=== PATIENT | male | born 1950 | race Caucasian/White ===

== ENCOUNTER → 2017-02-03 | Outpatient (CLI) | payer MEDICARE ==
[2017-02-03 17:21] LABS: Appearance,Urine Clear (Clear); Bilirubin,Urine Negative (Negative); Glucose,Urine (UA) Negative (Negative); Ketones,Urine Negative (Negative); Leukocyte Esterase,Urine Negative (Negative); Nitrite,Urine Negative (Negative); Protein,Urine Negative (Negative); Specific Gravity,Urine 1.015 (1.001-1.035); UA Billing (MACRO vs. MICRO) CHEM; Urobilinogen,Urine <2.0 mg/dL (<2.0)
[2017-02-03 17:23] LABS: Basophils % (A) 0 %; CH 30.1; CHCM 33.5; Eosinophils % (A) 1 %; HDW 2.62; HGB 15.1 gm/dL (13.0-17.5); Luc # (Auto) 0.11; Luc % (Auto) 2; Lymphocytes # (A) 0.6 k/uL (1.0-4.8); Lymphocytes % (A) 11 %; MCH 30.3 pg (25.0-35.0); MCHC 33.5 g/dL (31.0-37.0); MCV 90.5 fL (80.0-100.0); Mean Platelet Volume 6.3; Monocytes # (A) 0.4 k/uL (0-1.0); Monocytes % (A) 7 %; Neutrophils # (A) 4.4 k/uL (1.3-7.7); Neutrophils % (A) 79 %; RBC 4.97 m/uL (4.30-5.90); RDW 13.8 % (11.5-15.5); WBC 5.6 k/uL (3.8-10.6); WBC (Perox) 5.68
[2017-02-03 17:34] LABS: INR 1.1 (<1.1); Partial Thromboplastin Time 25.4 sec (22.0-30.0); Prothrombin Time 10.9 sec (9.0-12.0)
[2017-02-03 17:39] LABS: ALT 38 U/L (21-72); AST 26 U/L (17-59); Alkaline Phosphatase 69 U/L (38-126); Anion Gap 8 mmol/L; Blood Urea Nitrogen 30 mg/dL (9-20); Calcium 10.2 mg/dL (8.4-10.2); Carbon Dioxide 25 mmol/L (22-30); Chloride 106 mmol/L (98-107); Glucose 98 mg/dL (74-99); Non-African American GFR(MDRD) 55 (>60 ml/min/1.73 sqM); Potassium 5.3 mmol/L (3.5-5.1); Sodium 139 mmol/L (137-145); Total Bilirubin 0.7 mg/dL (0.2-1.3); Total Protein 6.6 g/dL (6.3-8.2)
== END ==
LOC: LABPAT 16:42
PROVIDERS: ATTEND Orthopaedic Surgery
DX: Z01.810 Encounter for preprocedural cardiovascular examination (principal); Z01.812 Encounter for preprocedural laboratory examination
CPT/HCPCS: 80053; 81003; 85025; 85610; 85730; 86850; 86900; 86901; 87070

== ENCOUNTER 2017-02-10 07:10 | Inpatient (IN) | payer BC, MEDICARE ==
[~2017-02-10 07:10] MED LIST: ACETAMINOPHEN TAB 500 MG TAB PO ONE; DEXAMETHASONE SOD PHOSPHATE 10 MG/ML 1 ML VIAL IV ONE; HYDROmorphone 1 MG/ML 1 ML SYRINGE IVP PRN; LACTATED RINGERS 1,000 ML IV SCH; LIDOCAINE 1% 20 ML VIAL (10MG/ML) FOR IV START INTRADERMA PRN; MELOXICAM 7.5 MG TAB PO ONE; MIDAZOLAM 2 MG/2 ML VIAL IV PRN; ONDANSETRON 4 MG/2 ML VIAL IVP ONE; SCOPOLAMINE 1.5MG/72HR PATCH TRANSDERM ONE; TRANEXAMIC ACID 1,000 MG in SODIUM CHLORIDE 0.9% 100 ML IVPB ONE; ceFAZolin 2 GM in SODIUM CHLORIDE 0.9% 100 ML IVPB ONE
[2017-02-10 09:32] LABS: Glucose,Whole Blood 82 mg/dL (75-99)
[2017-02-10] MEDS ORDERED: HYDROCORTISONE SUCCINATE 100 MG/2 ML VIAL IVP ONE (09:54)
[2017-02-10] MEDS ORDERED: TRANEXAMIC ACID 1,000 MG/10 ML VIAL ONE (10:56)
[2017-02-10] MEDS ORDERED: MIDAZOLAM 2 MG/2 ML VIAL ONE (10:56)
[2017-02-10] MEDS ORDERED: SODIUM CHLORIDE 0.9% IRRIG 1,000 ML BTL IRRIGATION ONE (10:56)
[2017-02-10] MEDS ORDERED: fentaNYL (PF) 50 MCG/ML 2 ML AMP ONE (10:56)
[2017-02-10] MEDS ORDERED: HEPARIN SODIUM,PORCINE 10,000 UNIT/ML 1 ML VIAL ONE (10:56)
[2017-02-10] MEDS ORDERED: SODIUM CHLORIDE 0.9% 100 ML BAG ONE (10:56)
[2017-02-10] MEDS ORDERED: ceFAZolin 3,000 MG in SODIUM CHLORIDE 0.9% IRRIGATIO 3,000 ML IRRIGATION ONE (11:10)
[2017-02-10] MEDS: ROPIVACAINE 246.25 MG, EPINEPHrine 0.5 MG, KETOROLAC 30 MG, cloNIDine HCL/PF 80 MCG, WA... MISCELLANE ONE ×10 (11:40→12:34)
[2017-02-10] MEDS ORDERED: LACTATED RINGERS 1,000 ML IV ONE (12:00)
[2017-02-10] MEDS ORDERED: MAGNESIUM HYDROXIDE 2,400 MG/10 ML CUP PO PRN (13:05)
[2017-02-10] MEDS ORDERED: ONDANSETRON 4 MG/2 ML VIAL IVP PRN (13:05)
[2017-02-10] MEDS ORDERED: DIAZEPAM 5 MG TAB PO PRN ×2 (13:05)
[2017-02-10] MEDS ORDERED: HYDROmorphone 1 MG/ML 1 ML SYRINGE IVP PRN ×3 (13:05)
[2017-02-10] MEDS ORDERED: NALOXONE 0.4 MG/ML 1 ML VIAL IV PRN (13:05)
[2017-02-10] MEDS ORDERED: HYDROcodone/APAP 5-325MG 1 EACH TAB PO PRN (13:05)
[2017-02-10] MEDS ORDERED: hydrOXYzine PAMOATE 25 MG CAP PO PRN (13:05)
--- NOTE | 2017-02-10 13:18 | P.OP ---
Date of Procedure: 02/10/17 Preoperative Diagnosis: Severe osteoarthritis right hip Postoperative Diagnosis: Severe osteoarthritis right hip Procedure(s) Performed: Right total hip arthroplasty with a direct anterior approach Implants: Black and nephew Polarstem size 6 standard with a collar Black [employer] Nephew R3, 3 hole acetabular shell, 48 mm [employer]hew reflection 6.5 mm cancellus screw, 20 mm 2 [employer]hew R3, XLPE 20 acetabular liner Black [employer] Nephew Oxinium femoral head 32 m, +4 All components were press-fit. The articulation is ceramic on polyethylene. Anesthesia: spinal Surgeon: Rodrigue Quarles Back Tender Cylinder #1: Alysia Fuller Back Tender Cylinder #2: Mohini Horowitz Estimated Blood Loss (ml): 250 (128 returned with cell saver) Pathology: other (Femoral head) Condition: stable Disposition: PACU Indications for Procedure: After failure of conservative treatment we discussed the surgical and nonsurgical treatment options at length. Patient wishes to proceed with a total hip arthroplasty with a direct anterior approach. Complications specific to this procedure were discussed at length, including but not limited to infection, leg length discrepancy, dislocation, and nerve injury. Patient is aware of all these complications and informed consent was obtained Operative Findings: The operative findings are consistent with severe osteoarthritis of the right hip Description of Procedure: Patient was seen and evaluated in the preoperative area, consent was reviewed, and the surgical site was marked with a skin marker. Patient was then brought to the operating room and given prophylactic antibiotics intravenously. 1 g of Tranexamic acid was also given. A spinal anesthetic was administered by the anesthesia department. The patient was then placed on the [place] table with the bony prominences well-padded. The hip area was then prepped and draped in usual sterile fashion. A universal timeout was then performed, which confirmed the patient's name, surgical site, ALLERGIES, and procedure being performed. Next the incision site was located at 1 cm distal and 1 cm lateral to the anterior superior iliac spine. The skin and subcutaneous tissues were sharply incised. Incision was carefully dissected down to the fascia overlying the tensor fascia anjel muscle. This fascia was then incised in line with the incision. Next, using blunt finger dissection, the tensor fascia anjel muscle was dissected off its investing fascia. The muscle was then carefully retracted laterally with a cobra retractor over the lateral neck of the femur. Next, the circumflex vessels were identified and cauterized using the AquaMantis device. The anterior hip capsule was then exposed. The capsule was then opened and an inverted T fashion. Retention sutures were placed in the inferior arms of the capsule. Cobra retractors were then placed intracapsularly. The proximal femur was then visualized. The femoral neck was then osteotomized appropriate level above the lesser trochanter. Small amount of traction was placed with the [place] table. A small wedge of bone was then removed from the remaining femoral head. Next, using a corkscrew femoral head was easily removed from the acetabulum. On gross visual inspection, the femoral head had complete loss of articular cartilage in multiple periarticular osteophytes. Attention was then turned to the acetabulum. the acetabulum was exposed and any remaining labrum was excised. Sequential reaming of the acetabulum was performed using fluoroscopic guidance. When the appropriate size was reached, a trial was then placed. The position and fit of the trial was checked with fluoroscopy. The trial was then removed. Then, using fluoroscopic guidance, the final implant was impacted at 20 of anteversion and 40 of abduction, and fully seated in the acetabulum. 2 screws were then placed in the acetabulum. Again fluoroscopy was used to check position of the screws. Next, the liner was then impacted, with a 20 elevated liner located in the anterior superior quadrant. Component locking was confirmed. Attention was then directed to the femur. With the aid of the [place] table, the femur was externally rotated to approximately 130, extended, and abducted under the opposite leg. A side hook was then placed under the proximal femur, and the side hook elevator was used to elevate the proximal femur. Retractors were then placed. A capsular release was performed, as well as a release of the conjoined tendon, which afforded excellent visualization of the proximal femur. Next, a box osteotome was used to lateralize the proximal femur. A hand paint mixer was then used to locate the femoral canal. Sequential broaching was then performed with appropriate size which afforded excellent fixation in the proximal femur. A trial was then placed with appropriate head and neck, and the hip was gently reduced with the aid of the [place] table. Fluoroscopy was then used to check position of the components, as well as to ensure equal leg lengths. The hip was then gently dislocated and the trials were then removed. Final implants were then impacted and the hip was again reduced. Final fluoroscopic x-rays confirmed that the components were in anatomic position, as well as equal leg lengths. The hip was also taken through range of motion, and found to be stable. The hip was then copiously irrigated with antibiotic solution with pulsatile lavage. The hip was then irrigated with Irrisept solution. The soft tissues were then injected with a ropivacaine solution, which consisted of 246.25 mg of ropivacaine, 0.5 mg of epinephrine, 30 mg of Toradol, 80 g of clonidine, and 48.45 mL of sterile water, for a total of 100 mL of fluid injected. A second dose of 1 g of Tranexamic acid was also given. the fascia was then closed with 2-0 strata fix suture. The subcutaneous tissue was closed with 3-0 Vicryl. The subcuticular tissue was closed with 3-0 strata fix suture. The skin was then closed with Dermabond tape. The patient was then transferred to the recovery room in stable condition. The warehouse administrative assistant DUNCAN Richard was required due to the complexity of surgery , and the need for skilled surgical services manager for positioning, draping, exposure , retraction, and closure of the wound.
[2017-02-10 13:29] VITALS: RESP 16
--- NOTE | 2017-02-10 13:35 | XR ---
Limited right hip HISTORY: Status post right hip arthroplasty Single frontal view of the right hip No comparisons Patient is status post right hip arthroplasty. There is anatomic alignment. Lucency noted in the soft tissues. IMPRESSION: Orthopedic follow-up
--- NOTE | 2017-02-10 14:17 | XR ---
Limited right hip HISTORY: Status post hip arthroplasty 2 intraoperative C-arm images document the procedure
--- NOTE | 2017-02-10 14:18 | FL ---
Fluoroscopy HISTORY: Pain 88 seconds fluoroscopy time supplied to the referring clinician. 3 intraoperative C-arm images docum ent the procedure. See dictated report from orthopedic surgery.
[2017-02-10] MEDS: SODIUM CHLORIDE 0.9% 1,000 ML IV SCH (14:48)
[2017-02-10] MEDS: ceFAZolin 2 GM in SODIUM CHLORIDE 0.9% 100 ML IVPB SCH (20:12)
[2017-02-10] MEDS ORDERED: TACROLIMUS 1 MG CAP PO SCH (21:00)
[2017-02-10] MEDS ORDERED: ATORVASTATIN 20 MG TAB PO SCH (21:00)
[2017-02-10] MEDS ORDERED: SENNOSIDES-DOCUSATE SODIUM 1 EACH TAB PO SCH (21:00)
[2017-02-10 21:07] VITALS: BMI 26.1
[2017-02-10] MEDS: LABETALOL 100 MG TAB PO SCH (21:09)
[2017-02-10] MEDS: MAGNESIUM OXIDE 400 MG TAB PO SCH (21:09)
[2017-02-10] MEDS: MYCOPHENOLATE MOFETIL 500 MG TAB PO SCH (21:09)
[2017-02-10] MEDS: ASPIRIN 325 MG TAB PO SCH (21:10)
[2017-02-10] MEDS: HYDROcodone/APAP 5-325MG 1 EACH TAB PO PRN (21:27)
[2017-02-11 01:46] VITALS: TEMP 97.7
[2017-02-11] MEDS: ceFAZolin 2 GM in SODIUM CHLORIDE 0.9% 100 ML IVPB SCH (03:42)
[2017-02-11] MEDS: HYDROcodone/APAP 5-325MG 1 EACH TAB PO PRN ×3 (03:43→14:11)
[2017-02-11 07:38] LABS: Basophils % (A) 0 %; CH 30.1; CHCM 32.7; Eosinophils # (A) 0.1 k/uL (0-0.7); Eosinophils % (A) 1 %; HCT 38.2 % (39.0-53.0); HGB 12.2 gm/dL (13.0-17.5); Luc # (Auto) 0.13; Luc % (Auto) 2; Lymphocytes # (A) 0.7 k/uL (1.0-4.8); Lymphocytes % (A) 10 %; MCH 29.4 pg (25.0-35.0); MCHC 31.8 g/dL (31.0-37.0); MCV 92.5 fL (80.0-100.0); Mean Platelet Volume 6.7; Monocytes # (A) 0.5 k/uL (0-1.0); Monocytes % (A) 7 %; Neutrophils # (A) 5.4 k/uL (1.3-7.7); Neutrophils % (A) 79 %; RBC 4.14 m/uL (4.30-5.90); RDW 13.9 % (11.5-15.5); WBC 6.8 k/uL (3.8-10.6); WBC (Perox) 7.45
[2017-02-11] MEDS: ASPIRIN 325 MG TAB PO SCH (08:46)
[2017-02-11] MEDS: LABETALOL 100 MG TAB PO SCH (08:47)
[2017-02-11] MEDS: MYCOPHENOLATE MOFETIL 500 MG TAB PO SCH (08:47)
[2017-02-11] MEDS: MAGNESIUM OXIDE 400 MG TAB PO SCH (08:47)
[2017-02-11] MEDS: SODIUM CHLORIDE 0.9% 1,000 ML IV SCH (08:48)
[2017-02-11] MEDS ORDERED: TACROLIMUS 1 MG CAP PO SCH (09:00)
[2017-02-11] MEDS ORDERED: predniSONE 5 MG TAB PO SCH (09:00)
[2017-02-11] MEDS ORDERED: MULTIVITAMINS, THERA 1 EACH TAB PO SCH (09:00)
[2017-02-11] MEDS ORDERED: FAMOTIDINE 20 MG TAB PO SCH (09:00)
[2017-02-11] MEDS ORDERED: MELOXICAM 7.5 MG TAB PO SCH (09:00)
[2017-02-11] MEDS ORDERED: TAMSULOSIN 0.4 MG CAP.ER.24H PO SCH (09:00)
--- NOTE | 2017-02-11 09:03 | P.DS ---
Providers Date of admission: 02/10/17 08:29 Expected date of discharge: 02/11/17 Attending physician: Rodrigue Quarles Consults: 02/10/17 13:05 Consult Physician Routine Consulting Provider: Khalif Hoffman Consult Reason/Comments: medical management Do you want consulting provider notified?: Yes Primary care physician: Sheng Tafoyaeldor - Discharge Diagnosis(es) (1) Status post right hip replacement Current Visit: Yes Status: Acute (2) Primary localized osteoarthritis of right hip Current Visit: Yes Status: Acute Hospital Course: This is a pleasant 67-year-old gentleman who was last seen in our office with complaints of right hip pain. Patient has known history of degenerative arthritis of the right hip and presented to discuss options. After discussion consideration the patient elected to proceed with a right total hip arthroplasty. Patient was seen preoperatively medically cleared for surgery by his primary care physician. Patient was admitted to [facility] and underwent right total hip arthroplasty. The procedure was performed without complications or sequelae. The patient has done well postoperatively. He states his pain is under fair control. He has no other complaints at this time. The patient has no new complaints today. The patient appears comfortable and in no acute distress. Dressing is clean dry and intact. There is a small amount of old bloody drainage. Incision is fine with no erythema or active drainage. Calf is soft and nontender. The patient has good foot and ankle motion without difficulty. Lower extremities are neurovascularly intact. The patient is orthopedically stable for discharge today if he does well with physical therapy. Pertinent Studies: Laboratory Tests 02/11/17 07:20 WBC 6.8 RBC 4.14 L Hgb 12.2 L Hct 38.2 L Patient Condition at Discharge: Good Plan - Discharge Summary Discharge Medication List Aspirin [Adult Low Dose Aspirin EC] 81 mg PO DAILY 02/09/17 [History] Atorvastatin [Lipitor] 20 mg PO HS 02/09/17 [History] Famotidine [Pepcid] 20 mg PO DAILY 02/09/17 [History] Labetalol [Trandate] 100 mg PO BID 02/09/17 [History] Magnesium Gluconate [Magonate] 500 mg PO BID 02/09/17 [History] Multivitamins, Thera [Multivitamin (formulary)] 1 tab PO DAILY 02/09/17 [History ] Mycophenolate Mofetil [Cellcept] 500 mg PO BID 02/09/17 [History] [place]-3 Acid Ethyl Esters [Lovaza] 1 gm PO BID 02/09/17 [History] Tacrolimus [Prograf] 1 mg PO HS 02/09/17 [History] Tamsulosin HCl [Flomax] 0.4 mg PO DAILY 02/09/17 [History] Vit C/E/Zn/Coppr/Lutein/Zeaxan [Preservision Areds 2 Softgel] 1 tab PO BID 02/09 [History] predniSONE 5 mg PO DAILY 02/09/17 [History] Non-Formulary Drug [Non Formulary Drug] 1 tab PO HS 02/10/17 [History] Tacrolimus [Prograf] 2 mg PO DAILY 02/10/17 [History] amLODIPine [Norvasc] 5 mg PO DAILY PRN 02/10/17 [History]
[2017-02-11 10:10] VITALS: BP 130/73; PULSE 63
[2017-02-11 11:46] LABS: ALT 31 U/L (21-72); AST 22 U/L (17-59); Alkaline Phosphatase 49 U/L (38-126); Anion Gap 6 mmol/L; Blood Urea Nitrogen 19 mg/dL (9-20); Calcium 8.8 mg/dL (8.4-10.2); Carbon Dioxide 27 mmol/L (22-30); Chloride 106 mmol/L (98-107); Glucose 86 mg/dL (74-99); Non-African American GFR(MDRD) 59 (>60 ml/min/1.73 sqM); Potassium 3.9 mmol/L (3.5-5.1); Sodium 139 mmol/L (137-145); Total Bilirubin 0.7 mg/dL (0.2-1.3); Total Protein 4.9 g/dL (6.3-8.2)
--- NOTE | 2017-02-11 20:29 | CONS ---
DATE OF CONSULTATION: REASON FOR CONSULTATION: Recommendation of anticoagulation post renal transplant ( ) aspirin or Coumadin. Patient is a very pleasant 67-year-old gentleman admitted for right hip arthroplasty, and patient is being discharged at this point of time. Patient had a renal transplant in the past, because of which high-dose aspirin 325 twice a day will have ( ) side effect and can affect the kidney, which is a concern, because of which I discussed with transplant strike warfare/missile systems officer and we decided patient will do better with Coumadin. Same thing was discussed with patient, and it was recommended to Nephrology that patient be discharged on Coumadin as per orthopedic dosing. REVIEW OF SYSTEMS: CONSTITUTIONAL: No fever, no malaise, no fatigue. HEENT: No recent visual problems or hearing problems. Denied any sore throat. CARDIOVASCULAR: No chest pain, orthopnea, PND, no palpitations, no syncope. PULMONARY: No shortness of breath, no cough, no hemoptysis. GASTROINTESTINAL: No diarrhea, no nausea, no vomiting, no abdominal pain. Normoactive bowel sounds. NEUROLOGICAL: No headaches, no weakness, no numbness. HEMATOLOGICAL: Denies any bleeding or petechiae. GENITOURINARY: Denies any burning micturition, frequency, or urgency. MUSCULOSKELETAL/RHEUMATOLOGICAL: Denies any joint pain, swelling, or any muscle pain. ENDOCRINE: Denies any polyuria or polydipsia. The rest of the 14 point review of systems is negative. Home medications include: 1. Prednisone. 2. Amlodipine. 3. Tamsulosin. 4. Tacrolimus. 5. [place]-3 fatty acids. 6. Mycophenolate. 7. Labetalol. 8. Magnesium. 9. Famotidine. 10. Atorvastatin. 11. Senna. 12. Acetaminophen/hydrocodone. Past medical history is significant for: 1. Coronary artery disease. 2. Gastroesophageal reflux disease. 3. Hypertension. 4. Osteoarthritis. 5. Prostate disorder. 6. Post renal transplant. 7. Hypothyroidism. 8. Cardiac catheterization. 9. Tonsillectomy. 10. Orthopedic surgery. SOCIAL HISTORY: Denied any smoking, alcohol abuse or any drug abuse. FAMILY HISTORY: Significant for leukemia. PHYSICAL EXAMINATION: Temperature 97.7, pulse of 63, respiratory rate of 16. Blood pressure is 130/73. Saturating at 97% on room air. GENERAL: The patient is alert and oriented x3, not in any acute distress. Well developed, well nourished. HEENT: Pupils are round and equally reacting to light. EOMI. No scleral icterus. No conjunctival pallor. Normocephalic, atraumatic. No pharyngeal erythema. No thyromegaly. CARDIOVASCULAR: S1 and S2 present. No murmurs, rubs, or gallops. PULMONARY: Chest is clear to auscultation, no wheezing or crackles. ABDOMEN: Soft, nontender, nondistended, normoactive bowel sounds. No palpable organomegaly. MUSCULOSKELETAL: No joint swelling or deformity. EXTREMITIES: No cyanosis, clubbing, or pedal edema. NEUROLOGICAL: Gross neurological examination did not reveal any focal deficits. SKIN: No rashes. LABORATORY DATA: CBC, CMP: No significant abnormality was appreciated. ASSESSMENT AND PLAN: 1. Post renal transplant recommendations regarding anticoagulation. As mentioned above, we recommend patient to be discharged on Coumadin rather than high-dose aspirin because of his renal transplant. 2. Coronary artery disease. 3. Hyperlipidemia. 4. Hypertension. 5. Hypothyroidism. 6. Post renal transplant with normal kidney function. 7. Right hip arthroplasty. Further management as per Orthopedic Surgery. Postoperative management as per Orthopedic Surgery. Pain management: recommend avoiding NSAIDs. For above-mentioned chronic medical problems, patient can continue his medications. His medication reconciliation was reviewed. Patient is okay to be discharged from medical perspective. Will sign off at this point of time.
== END 2017-02-11 18:09 | disposition home health service (06) | DRG 470 ==
LOC: 2ORMAIN 08:29 → 3SUR 13:10
PROVIDERS: ADMIT Orthopaedic Surgery; ATTEND Orthopaedic Surgery
PROC: 0SR904A Replacement of Right Hip Joint with Ceramic on Polyethylene Synthetic Substitute, Uncemented, Open Approach (ICD-10-PCS; principal; 2017-02-10 10:00)
DX: M16.11 Unilateral primary osteoarthritis, right hip (principal); Z94.0 Kidney transplant status; I10 Essential (primary) hypertension; Z79.82 Long term (current) use of aspirin; Z79.899 Other long term (current) drug therapy; E78.5 Hyperlipidemia, unspecified; E03.9 Hypothyroidism, unspecified; I25.10 Atherosclerotic heart disease of native coronary artery without angina pectoris; K21.9 Gastro-esophageal reflux disease without esophagitis; N42.9 Disorder of prostate, unspecified; Z79.52 Long term (current) use of systemic steroids
CPT/HCPCS: 73501; 80053; 84132; 85025; 86850; 86891; 86900; 86901; 88300